=== PATIENT | male | born 1945 | race Caucasian/White ===

== ENCOUNTER 2021-01-28 06:28 | Day surgery (SDC) | payer MEDICARE, OTHER ==
[2021-01-28] MEDS ORDERED: Sodium Chloride 0.9% 1,000 ML IV SCH (07:15)
[2021-01-28] MEDS ORDERED: fentaNYL 100 MCG/2 ML SDV ONE (07:28)
[2021-01-28] MEDS ORDERED: Propofol 200 MG/20 ML SDV ONE (07:28)
[2021-01-28] MEDS ORDERED: Midazolam 1 MG/ML 2 ML SDV ONE (07:28)
[2021-01-28 10:11] VITALS: BP 138/76; PULSE 44
--- NOTE | 2021-01-28 14:26 | OR ---
DATE OF PROCEDURE: SURGEON: Sonido Justin MD PROCEDURE: Esophagogastroduodenoscopy. FINDINGS: Approximately 1 cm plaque-like lesion at the GE junction (biopsied in conjunction with all 4 quadrants using cold biopsy forceps). COMPLICATIONS: None. FILLING AND STAPLING MACHINE OPERATOR: None. PREOPERATIVE DIAGNOSIS: Dysphagia. POSTOPERATIVE DIAGNOSIS: Dysphagia. RISKS: Risks, benefits, alternatives, and limitations including, but not limited to, infection, bleeding, perforation, false positives and false negatives were explained to the patient and they wished to proceed. PROCEDURE IN DETAIL: The patient was placed in left lateral decubitus position. The EGD scope was advanced atraumatically into the second part of the duodenum. No evidence of duodenitis or ulceration. Within the stomach itself, there was no gastritis or ulceration. The GE junction had a 1-cm plaque-like lesion that was pete in nature and not actively bleeding. In conjunction with this, the patient had a general inflammatory process around the GE junction. All 4 quadrants were biopsied as described above. Remainder of esophagus was inspected. Air was removed from the stomach. The patient tolerated the procedure well. Sonido Justin MD /[id number]
== END 2021-01-28 10:19 | disposition home or self-care (01) ==
LOC: JP.SDS 06:28
PROVIDERS: ATTEND Surgery
DX: K22.10 Ulcer of esophagus without bleeding (principal)
CPT/HCPCS: 43239; 88305; 88312; 88342; J2250; J2704; J3010; J7030

== ENCOUNTER 2021-04-10 07:29 | Day surgery (SDC) | payer MEDICARE ==
[~2021-04-10 07:29] MED LIST: Midazolam 1 MG/ML 2 ML SDV ONE; Propofol 200 MG/20 ML SDV ONE; fentaNYL 100 MCG/2 ML SDV ONE
[2021-04-10] MEDS ORDERED: Sodium Chloride 0.9% 1,000 ML IV SCH (08:00)
[2021-04-10 10:39] VITALS: BP 124/65; PULSE 40
--- NOTE | 2021-04-10 15:19 | OR ---
DATE OF PROCEDURE: 04/10/2021 SURGEON: Sonido Justin MD PROCEDURES: 1. Esophagogastroduodenoscopy. 2. Colonoscopy. FINDINGS: 1. Improvement of the esophagitis of the GE junction (biopsied using cold biopsy forceps). 2. Multiple colon polyps including ascending colon polyp #1, completely removed using hot snare wire device. 3. Ascending colon polyp #2, completely removed using cold snare wire device. 4. Transverse colon polyp #1, completely removed using cold biopsy forceps. 5. Transverse colon #2, completely removed using cold biopsy forceps. 6. Sigmoid colon #1, completely removed using cold biopsy forceps. 7. Sigmoid colon polyp #2, completely removed using cold biopsy forceps. 8. Rectal polyp, 5 mm, completely removed using cold biopsy forceps. COMPLICATIONS: None. DIRECTOR MOBILE: None. ANESTHESIA: MAC. PREOPERATIVE DIAGNOSES: History of esophagitis/screening colonoscopy. POSTOPERATIVE DIAGNOSES: History of esophagitis/screening colonoscopy. RISKS: Risks, benefits, alternatives, and limitations including but not limited to infection, bleeding, perforation, false positives and false negatives were explained to the patient and he wished to proceed. PROCEDURE IN DETAIL: The patient was placed in left lateral decubitus position. EGD scope was introduced and advanced atraumatically to the second part of the duodenum. No evidence of duodenitis or ulceration. Within the stomach, there was no evidence of gastritis or ulceration. The esophagitis at the GE junction showed marked improvement compared to previous procedure. This was biopsied using cold biopsy forceps times approximately 6. The air was removed from the stomach. Esophagus was inspected without any other abnormalities. Digital rectal exam was performed next. Scope was introduced and advanced atraumatically to the ileocecal valve. A photo was taken of the appendiceal orifice. Scope was brought back to the ascending, transverse, descending colon, and retroflexed. The aforementioned polyps were all identified and completely removed as described above. They ranged in size from 5 mm to approximately 10 mm. No abnormal bleeding was noted after removal of the aforementioned polyps. No diverticulosis. No old or new blood. The prep was poor with approximately 85% to 90% of the luminal surface could be seen with solid and liquid stool remaining. Suction irrigation techniques were used to optimize this. On retroflexion, there was also rectal polyp which was removed. No other abnormalities were noted. Greater than 8 minutes was spent removing the scope. The patient tolerated the procedure well. Also, of note, the patient subjectively feels significantly better with the PPI treatment. Sonido Justin MD /[id number]
== END 2021-04-10 10:25 | disposition home or self-care (01) ==
LOC: JP.SDS 07:29
PROVIDERS: ATTEND Surgery
DX: Z12.11 Encounter for screening for malignant neoplasm of colon (principal); D12.2 Benign neoplasm of ascending colon; D12.3 Benign neoplasm of transverse colon; D12.5 Benign neoplasm of sigmoid colon; K62.1 Rectal polyp; K21.00 Gastro-esophageal reflux disease with esophagitis, without bleeding
CPT/HCPCS: 43239; 45380; 45385; J2250; J2704; J3010; J7030; 88305; 88312

== ENCOUNTER 2023-12-03 07:13 | Day surgery (SDC) | payer MEDICARE ==
[2023-12-03] MEDS ORDERED: Propofol 200 MG/20 ML SDV ONE ×2 (07:27→09:06)
[2023-12-03] MEDS ORDERED: fentaNYL 100 MCG/2 ML SDV ONE (07:27)
[2023-12-03] MEDS: Sodium Chloride 0.9% 1,000 ML IV SCH (08:04)
[2023-12-03] MEDS ORDERED: Glycopyrrolate 0.2 MG/ML 2 ML SDV ONE (08:44)
[2023-12-03] MEDS ORDERED: Scopalamine 1mg/3day Transdermal Patch TOP ONE (11:13)
[2023-12-03] MEDS: Ondansetron 4 MG Tab.DIS PO PRN (11:19)
[2023-12-03 14:06] VITALS: BP 160/80; PULSE 64
== END 2023-12-03 13:55 | disposition home or self-care (01) ==
LOC: JP.SDS 07:13
PROVIDERS: ATTEND Surgery
DX: Z12.11 Encounter for screening for malignant neoplasm of colon (principal); K21.9 Gastro-esophageal reflux disease without esophagitis; D12.2 Benign neoplasm of ascending colon; K63.5 Polyp of colon; D12.3 Benign neoplasm of transverse colon; D12.4 Benign neoplasm of descending colon; D12.5 Benign neoplasm of sigmoid colon
CPT/HCPCS: 74019; 74019-26; 88305; J2704; J3010; J3490; J7030; Q0162

== ENCOUNTER 2024-11-06 12:26 | Emergency (ER) | payer MEDICARE ==
[2024-11-06 13:09] VITALS: BP 151/83; PULSE 48
[2024-11-06 13:42] LABS: BASOPHILS PERCENT AUTO 0.3 % (0.1-1.3); EOSINOPHILS ABSOLUTE AUTO 0.14 K/uL (0.00-0.40); EOSINOPHILS PERCENT AUTO 2.3 % (0.0-5.4); HEMATOCRIT 39.3 % (38.4-49.7); HEMOGLOBIN 13.9 g/dL (12.9-16.9); IMMATURE GRAN PERCENT AUTO 0.2 % (0.0-0.7); LYMPHOCYTES ABSOLUTE AUTO 1.34 K/uL (0.8-3.3); LYMPHOCYTES PERCENT AUTO 21.9 % (11.4-47.7); MEAN CORPUSCULAR HEMOGLOBIN 33.8 pg (31.6-35.5); MEAN CORPUSCULAR HGB CONC 35.4 g/dL (31.6-35.5); MEAN CORPUSCULAR VOLUME 95.6 fL (81.4-99.0); MONOCYTES ABSOLUTE AUTO 0.43 K/uL (0.20-0.90); NEUTROPHILS ABSOLUTE AUTO 4.17 K/uL (1.0-7.6); NEUTROPHILS PERCENT AUTO 68.3 % (40.0-78.1); PLATELET COUNT,PLT 113 K/uL (130-375); RED BLOOD CELL COUNT 4.11 M/uL (4.14-5.76); WHITE BLOOD CELL COUNT,WBC 6.1 K/uL (3.2-11.0)
[2024-11-06 13:50] LABS: BASOPHILS ABSOLUTE AUTO 0.02 K/uL (0.00-0.10); IMMATURE GRAN ABSOLUTE AUTO 0.01 K/uL (0.00-0.23)
[2024-11-06 14:09] LABS: ANION GAP 7.6 mmol/L (5.0-14.0); CALCIUM 8.9 mg/dL (8.5-10.1); EST CRCL DRUG DOSING (CG) 69.91 mL/min; TROPONIN I HIGH SENSITIVITY 11.8 pg/mL (<=60.3); TSH ULTRASENSITIVE 4.321 uIU/mL (0.358-3.740)
== END 2024-11-06 15:58 | disposition home or self-care (01) ==
LOC: JP.ED 12:26
DX: R42 Dizziness and giddiness (principal); R00.1 Bradycardia, unspecified; R94.6 Abnormal results of thyroid function studies; Z79.899 Other long term (current) drug therapy
CPT/HCPCS: 36415; 70450; 80048; 83735; 84443; 84484; 85025; 93005; 99284